=== PATIENT | male | born 2005 | race Caucasian/White ===

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

== ENCOUNTER 2025-02-09 23:57 | Emergency (ER) | payer MEDICAID ==
[2025-02-09] MEDS ORDERED: Norepinephrine Bit/D5W Premix 0 ML ONE (23:58)
[2025-02-10 00:18] VITALS: BP 0/0; PULSE 0
== END 2025-02-10 01:50 | disposition expired ==
LOC: MW.ED 23:57
DX: I46.9 Cardiac arrest, cause unspecified (principal); S01.93XA Puncture wound without foreign body of unspecified part of head, initial encounter; H57.04 Mydriasis; Z79.899 Other long term (current) drug therapy; W34.09XA Accidental discharge from other specified firearms, initial encounter; Y93.89 Activity, other specified
CPT/HCPCS: 92950; 99285; 99285-25